=== PATIENT | female | born 1955 | race Two or more races ===

== ENCOUNTER 2020-06-17 05:30 | Day surgery (SDC) | payer OTHER ==
[~2020-06-17 05:30] MED LIST: COZAAR50 MG; COZAAR50 MG PO; METROPOLOL PO
[2020-06-17] MEDS ORDERED: IBU600 MG PO (08:41)
== END 2020-06-17 14:00 | disposition home or self-care (01) ==
LOC: CIR.AMB 05:30
PROVIDERS: ATTEND Obstetrics & Gynecology Gynecology
DX: N84.0 Polyp of corpus uteri (principal); Z20.828 Contact with and (suspected) exposure to other viral communicable diseases